=== PATIENT | female | born 1950 | race Caucasian/White ===

== ENCOUNTER → 2017-04-22 09:12 | Outpatient (CLI) | payer MEDICARE, BC, SELFPAY ==
[2017-04-22 11:12] LABS: ALB/GLOB Ratio 0.9 RATIO (0.9-2.4); AST(SGOT) 21 U/L (15-37); Alanine Aminotransfer ALT/SGPT 36 U/L (13-56); Albumin, Serum 3.7 g/dL (3.2-5.0); Alkaline Phosphatase 72 U/L (45-117); Anion Gap 9 (5-15); BUN 12 mg/dL (7-18); Calcium,Total 8.3 mg/dL (8.5-10.1); Chloride 102 mmol/L (98-107); Cholesterol 294 mg/dL (200); Creatinine, Serum 0.86 mg/dL (0.55-1.02); EST Glomerular Filtration Rate 71 mL/min (>60); Est Glom Filt Rate - Afr Amer 85 mL/min (>60); Glucose 97 mg/dL (74-106); High Density Lipoprotein 45 mg/dL; Potassium 3.7 mmol/L (3.5-5.1); Protein, Total 7.7 g/dL (6.4-8.2); Sodium Level 140 mmol/L (136-145); Thyroid Stim Hormone (TSH) 2.88 uIU/mL (0.358-3.74); Triglycerides 229 mg/dL; Very Low Density Lipoprotein 46 mg/dL (5-40)
== END ==
PROVIDERS: Family Provider Family Medicine; PCP Family Medicine; Visit Provider Family Medicine
DX: I10 Essential (primary) hypertension (principal); E03.9 Hypothyroidism, unspecified
CPT/HCPCS: 36415; 80053; 80061; 84443

== ENCOUNTER 2017-08-20 16:30 | Emergency (ER) | payer MEDICARE, BC, SELFPAY ==
--- NOTE | 2017-08-20 16:30 | DT_ITS ---
This patient was seen during an EMR downtime August 19, 2017 - August 26, 2017. This patient may have a combination of paper and electronic documentation or all paper documentation. All documentation is viewable within the e-chart portion of [facility] for each patient visit.
== END 2017-08-20 17:20 | disposition home or self-care (01) ==
LOC: ED 08-22 08:21
PROVIDERS: Emergency Provider Emergency Medicine; Family Provider Family Medicine; PCP Family Medicine
DX: R04.0 Epistaxis (principal); I10 Essential (primary) hypertension; E03.9 Hypothyroidism, unspecified; I25.2 Old myocardial infarction; Z79.899 Other long term (current) drug therapy
CPT/HCPCS: 30901; 99282

== ENCOUNTER → 2018-03-28 08:18 | Outpatient (CLI) | payer MEDICARE, BC, SELFPAY ==
--- NOTE | 2018-03-28 08:51 | EKG12_ITS ---
Test Reason : PALPS Blood Pressure : / mmHG Vent. Rate : 066 BPM Atrial Rate : 066 BPM P-R Int : 190 ms QRS Dur : 080 ms QT Int : 394 ms P-R-T Axes : 040 035 049 degrees QTc Int : 413 ms Normal sinus rhythm Normal ECG Confirmed by LUCIO BATRES, URI ([id number]), map editor YANG DICKERSON ([id number] on 03/31/2018 10:19:10 AM Referred By: Charlotte Higgins Confirmed By:URI VALDES MD
== END ==
PROVIDERS: Family Provider Family Medicine; PCP Family Medicine; Referring Provider Family Medicine; Visit Provider Family Medicine
DX: I10 Essential (primary) hypertension (principal); E78.5 Hyperlipidemia, unspecified; I49.1 Atrial premature depolarization; I49.3 Ventricular premature depolarization
CPT/HCPCS: 93005; 93225; 93226

== ENCOUNTER 2019-11-05 18:50 | Emergency (ER) | payer MEDICARE, BC, SELFPAY ==
[2019-11-05 18:51] VITALS: BP 153/78; PULSE 68; RESP 17; TEMP 36.3; O2SAT 98; BMI 34.2
[2019-11-05 19:44] LABS: Red Blood Cells-Urine 0 SEEN /hpf (0-5)
[2019-11-05 19:48] LABS: Color, Urine Yellow (Yellow); Glucose, Dipstick Normal (Normal); Ketone-Dipstick 5 mg/dl (Negative); Leukocyte Esterase-Dipstick 500 /ul (Negative); Nitrite-Dipstick Negative (Negative); Occult Blood-Urine 10 /ul (Negative); Protein-Dipstick 30 mg/dl (Negative); Urine Bilirubin Dipstick Negative (Negative); Urine Clarity Sl. Cloudy (Clear); Urine Urobilinogen 1 mg/dl (Normal)
[2019-11-05 20:06] LABS: Anion Gap 5 (5-15); BUN 17 mg/dL (7-18); BUN/Creat Ratio 17.3 RATIO (10-20); Calcium,Total 8.8 mg/dL (8.5-10.1); Chloride 105 mmol/L (98-107); Creatinine, Serum 0.98 mg/dL (0.55-1.02); EST Glomerular Filtration Rate 60 mL/min (>60); Est Glom Filt Rate - Afr Amer 72 mL/min (>60); Estimated Creatinine Clearance 55.42 ml/min; Glucose 105 mg/dL (74-106); Potassium 3.9 mmol/L (3.5-5.1); Sodium Level 138 mmol/L (136-145)
--- NOTE | 2019-11-05 20:17 | ED.DCSUM_ITS ---
History of Present Illness Chief Complaint: Flank Pain Informant: Patient Narrative: The 68-year-old female presenting with right back pain and urinary frequency for the last couple of days. She does not have any nausea, vomiting. She is not had fever or chills. states that she feels well. Is to get her urinalysis checked to make sure she does not have a UTI or kidney infection. She denies abdominal pain. Past Medical History - Allergies and Home Meds Allergies/Adverse Reactions: Allergies No Known Allergies Allergy (Verified 11/05/19 18:50) Primary Care Physician: Charlotte Higgins MD [Primary Care Provider] - Prior records reviewed: Yes Past Medical History: - - Thyroidism, hyperlipidemia, hypertension Lives: Spouse/ Significant Other Smoking Status: Never smoker Alcohol: None Drugs: None Review of Systems General: Denies: Chills, Fever, Sweats Eyes: Reports: Visual changes - left ENT: Denies: Rhinorrhea, Sore throat Cardiovascular: Denies: Chest pain, Palpitations Respiratory: Denies: Dyspnea, Cough, Dyspnea on exertion Gastrointestinal: Denies: Abdominal pain, Nausea, Vomiting, Diarrhea, Melena, Hematochezia Genitourinary: Reports: Frequency Musculoskeletal: Reports: Back pain Skin: Denies: Rash, Wounds Neurological: Denies: Headache, Weakness, Numbness Physical Exam Vital Signs/Narrative: Vital Signs Temp Pulse Resp BP Pulse Ox 11/05/19 18:51 97.3 F L 68 17 153/78 H 98 Inital Vital Signs reviewed: Yes General: Well nourished, No Acute Distress Head: Normocephalic, Atraumatic ENT: Moist mucous membranes, No rhinorrhea Cardiovascular: Regular rate, Regular rhythm Respiratory: No distress, CTA bilaterally Abdomen: Soft, Nontender, Nondistended Back: - - Tenderness to palpation of the right lumbar paraspinal musculature. There is no CVA tenderness.. Negative for: CVA tenderness Skin: Normal color, No rash Neurological: Alert, Oriented x3 Psychological: Normal affect Diagnostic/Tx/Re-eval Laboratory Data 11/05/19 11/05/19 11/05/19 19:15 19:35 19:35 WBC Cancelled Corrected WBC Cancelled RBC Cancelled Hgb Cancelled Hct Cancelled MCV Cancelled MCH Cancelled MCHC Cancelled RDW Std Deviation Cancelled RDW Coeff of [place] Cancelled Plt Count Cancelled MPV Cancelled Immature Gran % (Auto) Cancelled Neut % (Auto) Cancelled Lymph % (Auto) Cancelled [place] % (Auto) Cancelled Eos % (Auto) Cancelled Baso % (Auto) Cancelled Absolute Neuts (auto) Cancelled Absolute Lymphs (auto) Cancelled Total Counted Cancelled Neutrophils % (Manual) Cancelled Band Neutrophils % Cancelled Lymphocytes % (Manual) Cancelled Monocytes % (Manual) Cancelled Eosinophils % (Manual) Cancelled Basophils % (Manual) Cancelled Metamyelocytes % Cancelled Myelocytes % Cancelled Promyelocytes % Cancelled Blast Cells % Cancelled Plasma Cell % (Manual) Cancelled Other Cells % Cancelled Nucleated RBC % Cancelled Nucleated RBCs/100 WBC Cancelled Differential Comment Cancelled Diff Path Review Cancelled Hypersegmented Neuts Cancelled Atypical Lymphocytes Cancelled Reactive Lymphocytes Cancelled Smudge Cells Cancelled Toxic Granulation Cancelled Toxic Vacuolation Cancelled Dohle Bodies Cancelled Evelyn Rods Cancelled Platelet Estimate Cancelled Plt Morphology Comment Cancelled RBC Morphology Cancelled Polychromasia Cancelled Hypochromasia Cancelled Poikilocytosis Cancelled Basophilic Stippling Cancelled Anisocytosis Cancelled Microcytosis Cancelled Macrocytosis Cancelled Spherocytes Cancelled Sickle Cells Cancelled Target Cells Cancelled Tear Drop Cells Cancelled Ovalocytes Cancelled Stomatocytes Cancelled [place] Bodies Cancelled [place] Cells Cancelled Bite Cells Cancelled Crenated Cell Cancelled Acanthocytes (Spur) Cancelled Rouleaux Cancelled Schistocytes Cancelled Sodium 138 Potassium 3.9 Chloride 105 Carbon Dioxide 28.0 Anion Gap 5 BUN 17 Creatinine 0.98 Estim Creat Clear Calc 55.42 Est GFR (MDRD) Af Amer 72 Est GFR (MDRD) Non-Af 60 BUN/Creatinine Ratio 17.3 Glucose 105 Calcium 8.8 Urine Color Yellow Urine Clarity Sl. Cloudy Urine pH 5.0 Ur Specific [place] 1.030 Urine Protein 30 H Urine Glucose (UA) Normal Urine Ketones 5 H Urine Occult Blood 10 H Urine Nitrite Negative Urine Bilirubin Negative Urine Urobilinogen 1 H Ur Leukocyte Esterase 500 H Urine RBC 0 SEEN Urine WBC 25-50 SEEN Ur Squamous Epith Cells 0-5 SEEN Urine Bacteria RARE Urine Mucus RARE - Medical Decision Making Presents with UTI symptoms and now she is having lower back symptoms and is concerned for pyelonephritis. She does not have fever, nausea, vomiting. She feels otherwise well. I did check a urinalysis which was positive. This was sent for culture and she was started on Keflex. She does not have valentin CVA tenderness over given her back pain and a UTI we will treat her as pyelonephritis. She was amenable to this plan. She was given Tylenol pain in the ED as this is all she wanted. Patient will be discharged home in stable condition. She is given return precautions. Impression: 1. Pyelonephritis ED Disposition - Plan for ED Patient: Disposition: Home or Assisted Living Instructions: ED Pyelonephritis Female Adult Prescriptions: Cephalexin [Keflex] 500 mg PO Q6 #40 cap Transmission Status: Received by [id number] Referrals: Charlotte Higgins MD [Primary Care Provider] -
[2019-11-05 20:21] LABS: Bacteria RARE /hpf (None Seen); Mucous, Urine RARE /hpf (<or=2+); Squamous Epithelial Cells - UA 0-5 SEEN /hpf (5-10); White Blood Cells 25-50 SEEN /hpf (0-5)
[2019-11-05] MEDS: Acetaminophen 500 MG Tablet 1000 MG PO (20:25)
[2019-11-05] MEDS: Acetaminophen 500 MG Tablet PO (22:02)
[2019-11-05] MEDS: Cephalexin 250 MG Capsule 500 MG PO (22:02)
[2019-11-05 22:09] VITALS: BP 174/69; PULSE 60; RESP 14
== END 2019-11-05 22:09 | disposition home or self-care (01) ==
PROVIDERS: Emergency Provider Student in an Organized Health Care Education/Training Program; PCP Family Medicine
DX: N12 Tubulo-interstitial nephritis, not specified as acute or chronic (principal); I10 Essential (primary) hypertension; E78.5 Hyperlipidemia, unspecified; E03.9 Hypothyroidism, unspecified; Z79.899 Other long term (current) drug therapy
CPT/HCPCS: 80048; 81001; 87086; 87088; 99284; A4216

== ENCOUNTER → 2022-06-04 | Outpatient (CLI) | payer MEDICARE, BC, SELFPAY | END | disposition home or self-care (01) | LOC: PSN 11:57 | PROVIDERS: PCP Family Medicine; Visit Provider Nurse Practitioner Family | DX: R00.2 Palpitations (principal) | CPT/HCPCS: 93225; 93226 ==